=== PATIENT | female | born 1995 | race Caucasian/White ===

== ENCOUNTER → 2017-04-01 | Outpatient (CLI) | payer SELFPAY ==
--- NOTE | 2017-04-01 17:33 | RADIOLOGY REPORT (SQ) ---
EXAM DESCRIPTION: U/S OB TRANSVAGINAL W/O DOP COMPLETED DATE/TIME: 04/01/2017 4:30 pm REASON FOR STUDY: ENCOUNTER FOR SUPERVISION OF OTHER NORMAL Z34.81 ENCOUNTER FOR SUPRVSN OF NORMAL , FIRST TRIM COMPARISON: None. TECHNIQUE: Endovaginal static and realtime grayscale images acquired of the pelvis. Additional selec kris spectral and color Doppler images recorded. All images stored on PACs. bHCG: Not available LIMITATIONS: None. FINDINGS: An intrauterine gestational sac containing a yolk sac is present. Embryo not yet seen. EGA: 5 weeks 3 days PETTY: 11/29/2017 SUBCHORIONIC BLEED: No SIZE OF BLEED: Not applicable. UTERUS: No masses. No anomalies. Uterus is 6.7 x 3.4 x 4.2 cm in size CERVICAL LENGTH: 2 cm Closed. RIGHT ADNEXA: Normal ovary with normal vascular flow. Right ovary 3.1 x 1.6 x 1.2 cm in size No adnexal free fluid. No adnexal masses. LEFT ADNEXA: Normal ovary with normal vascular flow. Left ovary 2.4 x 1.9 x 1.1 cm in size No adnexal free fluid. No adnexal masses. FREE FLUID: None. OTHER: No other significant finding. IMPRESSION: Intrauterine gestational sac with yolk sac present. Estimated age 5 weeks 3 days by ramiro n sac diameter. Embryo not yet seen Trimester of : First - 0 to 13 weeks. TECHNICAL DOCUMENTATION: JOB ID: [id number] [employer]- All Rights Reserved
== END ==
LOC: RAD 15:43
PROVIDERS: ATTEND Nurse Practitioner Women's Health
DX: Z34.81 Encounter for supervision of other normal pregnancy, first trimester (principal)
CPT/HCPCS: 76817

== ENCOUNTER → 2017-04-07 | Outpatient (CLI) | payer MEDICAID | LOC: LAB 12:16 | PROVIDERS: ATTEND Emergency Medicine | DX: O20.0 Threatened abortion (principal); Z3A.00 Weeks of gestation of pregnancy not specified | CPT/HCPCS: 36415; 84702 ==